=== PATIENT | female | born 1990 | race Caucasian/White ===

== ENCOUNTER 2018-02-08 15:49 | Emergency (ER) | payer SELFPAY ==
[~2018-02-08] VITALS: Ht 149.9 cm; Wt 63.5 kg
[2018-02-08 15:55] VITALS: BP 120/71
--- NOTE | 2018-02-08 16:26 | NUR ---
PT AMBULATES TO BED 7
--- NOTE | 2018-02-08 16:30 | NUR ---
PT LWBS AT 1109
--- NOTE | 2018-02-08 16:40 | NUR ---
Shari goyal in [facility] - 02/08/18 at 1642 by [facility] PT PANDA AT [id number]
== END 2018-02-08 16:30 | disposition left against medical advice (07) ==
LOC: MED 15:49
DX: T63.301A Toxic effect of unspecified spider venom, accidental (unintentional), initial encounter (principal); Z53.21 Procedure and treatment not carried out due to patient leaving prior to being seen by health care provider; Y92.89 Other specified places as the place of occurrence of the external cause

== ENCOUNTER 2018-04-09 13:45 | Emergency (ER) | payer SELFPAY ==
[~2018-04-09] VITALS: Ht 149.9 cm; Wt 63.0 kg
[2018-04-09 14:12] VITALS: BP 132/80
--- NOTE | 2018-04-09 14:27 | NUR ---
27 yo f bib self with for check to see if she has possible STD. Patient sts boyfriend had possible gonorrhea or chlamydia. Patient denies any vaginal discharge, bleeding, urinary complaints, fevers, abd pain, or n/v/d. aaox4, gcs 15, cms intact, rr even and unlabored. lungs bl clear. abd soft, non-tender. er md notified. pt needs met. safety precautions in place. will conitnue to monitor.
--- NOTE | 2018-04-09 15:01 | NUR ---
PT LWBS AT THIS TIME
== END 2018-04-09 15:01 | disposition left against medical advice (07) ==
LOC: MED 13:45
DX: Z20.2 Contact with and (suspected) exposure to infections with a predominantly sexual mode of transmission (principal); Z53.21 Procedure and treatment not carried out due to patient leaving prior to being seen by health care provider